=== PATIENT | male | born 1940 | race Caucasian/White ===

== ENCOUNTER 2024-02-02 18:40 | Emergency (ER) | payer OTHER ==
[~2024-02-02] VITALS: Ht 157.5 cm; Wt 46.3 kg
[2024-02-02 19:24] VITALS: PULSE 77; RESP 20; TEMP 98.1; O2SAT 98
[2024-02-02 19:31] LABS: BILIRUBIN,URINE NEGATIVE (NEGATIVE); BLOOD, URINE 1+ (NEGATIVE); COLOR,URINE YELLOW (YELLOW); GLUCOSE,URINE NEGATIVE (NEGATIVE); KETONES,URINE TRACE (NEGATIVE); LEUKOCYTE ESTERASE ,URINE 2+ (NEGATIVE); NITRITE, URINE POSITIVE (NEGATIVE); PROTEIN URINE NEGATIVE (NEGATIVE); UROBILINOGEN,URINE 0.2 (0.2-1.0)
[2024-02-02 19:35] LABS: CLARITY/URINE HAZY (CLEAR)
[2024-02-02 19:39] LABS: BACTERIA,URINE MANY /HPF (None Seen)
[2024-02-02 19:40] LABS: MUCUS,URINE None Seen /LPF (None Seen); URINE AMORPHOUS PHOSPHATES 3+ /HPF (None Seen)
[2024-02-02] MEDS: cefTRIAXone 1 GM VIAL IM ONE (21:12)
[2024-02-02] MEDS: KETOROLAC TROMETHAMINE 30 MG VIAL IM ONE (21:13)
[2024-02-02] MEDS: traMADol HCL HCL 50 MG TABLET (ULTRAM) PO ONE (21:25)
[2024-02-02] MEDS ORDERED: LEVO-62 PO (21:37)
[2024-02-02] MEDS ORDERED: ONDA-8 TL (21:37)
[2024-02-02 21:40] VITALS: BP_SYST 116; PULSE 82; RESP 18; TEMP 98.1; O2SAT 98
== END 2024-02-02 21:40 | disposition home or self-care (01) ==
LOC: SED 18:40
DX: N39.0 Urinary tract infection, site not specified (principal); I10 Essential (primary) hypertension; F02.80 Dementia in other diseases classified elsewhere, unspecified severity, without behavioral disturbance, psychotic disturbance, mood disturbance, and anxiety; E03.9 Hypothyroidism, unspecified; Z88.6 Allergy status to analgesic agent; Z88.8 Allergy status to other drugs, medicaments and biological substances
CPT/HCPCS: 99283; 81001; 87086; 87186; 96372; J0696; 81000; 81015; J1885